=== PATIENT | female | born 2005 | race Caucasian/White ===

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

== ENCOUNTER 2023-11-09 00:49 | Emergency (ER) | payer OTHER, SELFPAY ==
[2023-11-09 00:50] VITALS: BP 116/80; PULSE 102; RESP 18; TEMP 36.2; O2SAT 99
--- NOTE | 2023-11-09 01:52 | EDS_ITS ---
HPI History of Present Illness Chief Complaint: Laceration Narrative Narrative: 18-year-old female presenting with laceration to left index finger. She states she was doing dermabrasion on her friend. She states that she went to open the razor blade to do this and she nicked to the left index finger on the volar surface. Tetanus is up-to-date. [id number]. PFSH PFSH Home Medications ?Medication ?Instructions ?Recorded ?Last Taken ?Type NK 11/09/23 Unknown History Allergy/AdvReac Type Severity Reaction Status Date / Time No Known Allergies Allergy Verified 11/09/23 00:52 Social History Smoking Status: Never smoker ROS ROS ED Constitutional Constitutional ED: Denies chills, fever(s) or sweats Eyes Eyes: Denies blurry vision or change in vision ENT ENT ED: Denies ear pain or sore throat Cardiovascular Cardiovascular: Denies chest pain, palpitations or racing heartbeat Respiratory/Chest Respiratory/Chest: Denies cough, dyspnea or sputum Gastrointestinal Gastrointestinal: Denies abdominal pain, constipation, diarrhea, nausea or vomiting Genitourinary Genitourinary ED: Denies dysuria, hematuria or urinary frequency Musculoskeletal Musculoskeletal: Denies arthralgias, myalgias or neck pain Integumentary Reports other Details: Superficial laceration to the volar surface of the left index finger ; Denies abscess, Abrasions or rash Neurologic Neurologic: Denies headache(s), paresthesias or weakness Psychiatric Psychiatric: Denies anxiety, depression, suicidal ideation or suicidal thoughts Endocrine Endocrinology: Denies polydipsia or polyuria EXAM Physical Exam Const Vital Signs: 11/09/23 00:50 Temperature 97.2 F L Temperature Source Temporal Pulse Rate 102 H Respiratory Rate 18 Blood Pressure 116/80 Blood Pressure Mean 92 Pulse Ox 99 Oxygen Delivery Method Room Air Positive well nourished General Appearance ED: NAD HEENT normocephalic Eyes PERRL Cardio regular rate and regular rhythm Neuro oriented x3 and CN's II-XII intact bilaterally Sensorium / Orientation: alert Psych mental status grossly normal Skin Skin Narrative: Superficial abrasion to the volar surface of the left index finger minimal bleeding. This is very small. MDM MDM MDM Narrative Medical decision making narrative: Patient with superficial laceration to the left index finger. The wound is very small I do not believe it needs sutures I think it will heal will heal on its own without sutures. And we will place her in a dressing. I recommend she keep her wounds dressed. Return precautions discussed. Impression: 1. superficial left Discharge Plan Triage Chief Complaint: Laceration ED Provider: Pawel Marinelli Dx/Rx/DC Orders Instructions: ED Laceration Superficial No Stitch Prescriptions: No Action NK Primary Care Provider: Jacque Roman Referrals: Jacque Roman MD [Primary Care Provider] - Print Language: [place] Disposition Disposition: Home, Self Care Discharge Date/Time: 11/09/23 02:02
== END 2023-11-09 02:02 | disposition home or self-care (01) ==
LOC: ED 02:00
PROVIDERS: Emergency Provider Student in an Organized Health Care Education/Training Program; PCP Pediatrics; Visit Provider Student in an Organized Health Care Education/Training Program
DX: S61.211A Laceration without foreign body of left index finger without damage to nail, initial encounter (principal); W26.8XXA Contact with other sharp object(s), not elsewhere classified, initial encounter
CPT/HCPCS: 99282

== ENCOUNTER 2024-07-07 08:53 | Emergency (ER) | payer OTHER, SELFPAY ==
[2024-07-07 08:53] VITALS: BP 142/78; PULSE 99; RESP 14; TEMP 36.6; O2SAT 100; BMI 20.2
--- NOTE | 2024-07-07 09:03 | EX.ED.GENINJ ---
HPI History of Present Illness Chief Complaint: Nausea/Vomiting Narrative Narrative: Chief complaint and HPI: Nausea and vomiting. 18-year-old female with no significant past medical history presents for evaluation of nausea and vomiting. Onset of symptoms Sunday. Associated symptom is decreased p.o. intake and some mild abdominal discomfort due to the frequent emesis. Emesis is nonbloody. Denies any fever, chills, cough, shortness of breath, chest pain, body aches, diarrhea, constipation, dysuria. Patient has an IUD and does not believe herself to be . Patient states she is concerned for dehydration which is why she presents today. Review of systems: See HPI Medications: As listed on the chart Allergies: As listed on the chart PFSH: Per chart Vital signs: As listed on the chart. Reviewed. Physical exam: Gen: A&O x3, NAD Head: Normocephalic, atraumatic Eyes: No sclera icterus, conjunctiva clear ENT: Mildly dry mucous membranes Neck: Trachea midline, No JVD CV: RRR, no murmurs, no peripheral edema Resp: Lungs CTA BL, no w/r/c GI: Abd soft, non-distended, non-tender, no r/r/g : No CVA tenderness Musc: Full ROM, no deformity Skin: Warm, dry Neuro: Alert, oriented, grossly intact, sensation intact Psych: Cooperative, appropriate mood and affect [facility] Home Medications ?Medication ?Instructions ?Recorded ?Last Taken ?Type NK 11/09/23 Unknown History Allergy/AdvReac Type Severity Reaction Status Date / Time No Known Allergies Allergy Verified 11/09/23 00:52 Social History Smoking Status: Never smoker EXAM Physical Exam Const Vital Signs: 07/07/24 08:53 Temperature 97.9 F Temperature Source Oral Pulse Rate 99 Respiratory Rate 14 Blood Pressure 142/78 H Blood Pressure Mean 99 Pulse Ox 100 Oxygen Delivery Method Room Air MDM MDM MDM Narrative Medical decision making narrative: 18-year-old female with no significant past medical history presents for evaluation of nausea and vomiting. Differential diagnosis includes but is not limited to viral illness, electrolyte abnormality, dehydration, UTI, . Suspect less likely intra-abdominal pathology. NS bolus and Zofran ordered for symptoms. Basic labs ordered including urine. CBC without leukocytosis or anemia. CMP unremarkable without electrolyte abnormality, DIONI, transaminitis. Lipase unremarkable. UA is positive for ketones which is consistent with dehydration. Negative for UTI. Urine negative. Patient was able to tolerate p.o. intake without emesis. Patient is stable to discharge home. Follow-up with PCP. Patient will be given prescription for Zofran. Advance diet as tolerated. Patient confirmed understanding the plan, Impression: 1. Nausea and vomiting 2. Dehydration Lab Data Labs: Laboratory Results - last 24 hr 07/07/24 07/07/24 09:11 09:28 WBC 4.7 RBC 4.36 Hgb 13.5 Hct 38.9 MCV 89.2 MCH 31.0 MCHC 34.7 RDW Std Deviation 42.0 RDW Coeff of Torie 12.8 Plt Count 272 MPV 10.3 Immature Gran % (Auto) 0.200 Neut % (Auto) 52.1 Lymph % (Auto) 38.2 [place] % (Auto) 7.3 Eos % (Auto) 1.1 Baso % (Auto) 1.1 H Absolute Neuts (auto) 2.4 Absolute Lymphs (auto) 1.78 Nucleated RBC % 0 Sodium 136 Potassium 3.3 Chloride 98 Carbon Dioxide 23.2 Anion Gap 15 BUN 15 Creatinine 0.77 Estim Creat Clear Calc 101.23 Est GFR (MDRD) Non-Af 114 BUN/Creatinine Ratio 19.5 Glucose 81 Calcium 9.9 Total Bilirubin 0.89 AST 18 ALT 16 Alkaline Phosphatase 75 Total Protein 8.1 Albumin 4.9 Globulin 3.2 Albumin/Globulin Ratio 1.5 Lipase 28 Urine Color Yellow Urine Clarity Clear Urine pH 6.0 Ur Specific [place] 1.025 Urine Protein 30 H Urine Glucose (UA) Normal Urine Ketones 150 A* Urine Occult Blood 25 H Urine Nitrite Negative Urine Bilirubin 1 H Urine Urobilinogen 1 H Ur Leukocyte Esterase 25 H Urine RBC 0-5 SEEN Urine WBC 0-5 SEEN Ur Squamous Epith Cells 5-10 SEEN Urine Bacteria 0 SEEN Urine Mucus 2+ Discharge Plan Triage Chief Complaint: Nausea/Vomiting ED Provider: Roderick Castillo Dx/Rx/DC Orders Prescriptions: No Action NK Primary Care Provider: Jacque Roman Referrals: Jacque Roman MD [Primary Care Provider] - Print Language: [place]
[2024-07-07 09:17] LABS: Absolute Lymphocyte Count 1.78 X10^3/uL (0.83-4.51); Absolute Neutrophil Count 2.4 X10^3/uL (2.0-7.7); Basophil# 0.05 X10^3/uL; Basophil% 1.1 % (0-1); Eosinophil# 0.05 X10^3/uL; Eosinophils% 1.1 % (0-5); Hematocrit 38.9 % (37-47); Hemoglobin 13.5 g/dL (12.0-15.0); Lymphocyte # 1.78 X10^3/ul (0.83-4.51); Lymphocyte % 38.2 % (19-41); Mean Corp Hgb Conc 34.7 g/dL (32-36); Mean Corpuscular Volume 89.2 fL (81-99); Mean Platelet Vol. 10.3 fl (6.2-12.0); Monocyte# 0.34 X10^3/uL; Monocyte% 7.3 % (0-10); NRBC Flagged by Analyzer 0 % (0-5); Neutrophil # 2.43 X10^3/uL (2.7-7.7); Neutrophil % 52.1 % (47-70); Platelet Count 272 K/mm3 (150-450); RBC Distribution Width CV 12.8 % (11.6-14.6); Red Blood Count 4.36 M/mm3 (4.2-5.4); White Blood Count 4.7 K/mm3 (4.4-11.0)
[2024-07-07] MEDS: Ondansetron 4 MG/2 ML Vial IV (09:26)
[2024-07-07] MEDS: 0.9% Normal Saline (1000mL) 1,000 ML 1000 ML IV (09:26)
[2024-07-07 09:33] LABS: Bacteria 0 SEEN /hpf (None Seen)
[2024-07-07 09:38] LABS: ALB/GLOB Ratio 1.5 RATIO (0.9-2.4); AST(SGOT) 18 U/L (<=31); Alanine Aminotransfer ALT/SGPT 16 U/L (<=34); Albumin, Serum 4.9 g/dL (3.5-5.0); Alkaline Phosphatase 75 U/L (35-104); Anion Gap 15 (5-15); BUN 15 mg/dL (4-19); BUN/Creat Ratio 19.5 RATIO (10-20); Calcium,Total 9.9 mg/dL (7.6-11.0); Carbon Dioxide 23.2 mmol/L (21.0-32.0); Chloride 98 mmol/L (98-108); Creatinine, Serum 0.77 mg/dL (0.70-1.20); EST Glomerular Filtration Rate 114 (>60); Estimated Creatinine Clearance 101.23 ml/min (50-250); Globulin 3.2 g/dL (2.2-4.2); Glucose 81 mg/dL (70-99); Lipase 28 U/L (13-75); Potassium 3.3 mmol/L (3.3-5.1); Protein, Total 8.1 g/dL (5.9-8.4); Sodium Level 136 mmol/L (133-145); Total Bilirubin 0.89 mg/dL (0.00-1.30)
[2024-07-07 09:39] LABS: Color, Urine Yellow (Yellow); Glucose, Dipstick Normal (Normal); Leukocyte Esterase-Dipstick 25 /ul (Negative); Nitrite-Dipstick Negative (Negative); Occult Blood-Urine 25 /ul (Negative); Protein-Dipstick 30 mg/dl (Negative); Specific Gravity, Urine 1.025 (1.002-1.030); Urine Clarity Clear (Clear); Urine Urobilinogen 1 mg/dl (Normal)
[2024-07-07 09:56] LABS: Urine Bilirubin Dipstick 1 mg/dL (Negative)
[2024-07-07 09:58] LABS: Ketone-Dipstick 150 mg/dl (Negative)
[2024-07-07 10:05] LABS: Mucous, Urine 2+ /hpf (<or=2+); Red Blood Cells-Urine 0-5 SEEN /hpf (0-5); Squamous Epithelial Cells - UA 5-10 SEEN /hpf (5-10); White Blood Cells 0-5 SEEN /hpf (0-5)
[2024-07-07 10:15] LABS: Internal QC Validated? YES +Cl - CLEAR BKGD; Pregnancy, Urine Negative Negative
[2024-07-07 10:28] VITALS: BP 122/78; PULSE 77; RESP 18; TEMP 36.8; O2SAT 98
== END 2024-07-07 10:37 | disposition home or self-care (01) ==
PROVIDERS: Emergency Provider Surgery; PCP Pediatrics; Visit Provider Surgery
DX: R11.2 Nausea with vomiting, unspecified (principal); E86.0 Dehydration
CPT/HCPCS: 80053; 81001; 81025; 83690; 85025; 96361; 96374; 99284; A4216; J2405